=== PATIENT | female | born 1990 | race Caucasian/White ===

== ENCOUNTER 2022-07-24 12:32 | Emergency (ER) | payer OTHER ==
[~2022-07-24] VITALS: Ht 165.1 cm; Wt 70.5 kg
[2022-07-24] MEDS ORDERED: LORazepam 2MG/ML-1ML VIAL IV ONE (12:45)
[2022-07-24 13:11] LABS: Basophils # (auto) 0.1 10 ^3/uL (0-0.2); Basophils % (auto) 0.6 % (0.0-2.0); Eosinophils # (auto) 0.1 10 ^3/uL (0-0.8); Eosinophils % (auto) 0.5 % (0.0-7.0); Hematocrit 38.9 % (36.0-46.0); Hemoglobin 12.5 g/dL (12.2-16.2); Lymphocytes # (auto) 1.4 10 ^3/uL (0.4-5.4); Lymphocytes % (auto) 10.9 % (10.0-50.0); Mean Corpuscular Hemoglobin 29.5 pg (28.0-32.0); Mean Corpuscular Hgb Conc. 32.2 g/dL (32.0-36.0); Mean Corpuscular Volume 91.5 fL (80.0-100.0); Monocytes # (auto) 0.7 10 ^3/uL (0-1.3); Monocytes % (auto) 5.6 % (0.0-12.0); Neutrophils # (auto) 10.9 10 ^3/uL (1.6-8.6); Neutrophils % (auto) 82.4 % (37.0-80.0); Red Blood Cells 4.25 10^6/uL (4.0-5.20); Red Cell Distribution Width 13.6 % (11.8-14.3); White Blood Cell 13.2 10^3/uL (4.4-10.8)
[2022-07-24 13:25] LABS: Salicylate 2.6 mg/dL (2.8-20.0)
[2022-07-24 13:26] LABS: Anion Gap 8 (5-15); BUN/Creatinine Ratio 12.4; Blood Alcohol < 3.0 mg/dL (0-5); Blood Urea Nitrogen 11 mg/dL (7-18); Calcium 9.2 mg/dL (8.5-10.1); Carbon Dioxide 24 mmol/L (21-32); Chloride 107 mmol/L (98-107); GFR African American 96 mL/min; GFR Non-African American 79 mL/min; Glucose 90 mg/dL (74-106); Potassium 3.8 mmol/L (3.5-5.1); Sodium 139 mmol/L (136-145)
[2022-07-24 13:32] LABS: Amphetamine Screen, Urine POSITIVE (NEGATIVE); Barbiturate Scree,Urine NEGATIVE (NEGATIVE); Benzodiazephine Screen, Urine NEGATIVE (NEGATIVE); Cocaine Screen, Urine NEGATIVE (NEGATIVE); Opiate Scree,Urine NEGATIVE (NEGATIVE); Phencyclidine Screen, Urine NEGATIVE (NEGATIVE)
[2022-07-24 13:40] LABS: Cannabinoid Screen, Urine POSITIVE (NEGATIVE)
[2022-07-24 14:02] LABS: Acetaminophen < 2.0 ug/mL (10-30)
[2022-07-24 15:39] VITALS: BP 152/76
[2022-07-24] MEDS ORDERED: LORazepam 2MG/ML-1ML VIAL IM ONE (18:15)
== END 2022-07-24 17:31 | disposition home or self-care (01) ==
LOC: ER 12:32
DX: R45.851 Suicidal ideations (principal)
CPT/HCPCS: 36415; 80048; 80307; 80320; 80329; 81025; 85025; 93005; 96374; 99284; J2060